=== PATIENT | male | born 1970 | race African-American/Black ===

== ENCOUNTER 2023-01-17 09:33 | Inpatient (IN) | payer OTHER ==
[2023-01-17 14:03] VITALS: BMI 28.0
[2023-01-17] MEDS ORDERED: POLYETHYLENE GLYCOL (HEALTHYLAX) 3350 17 GM PACKET PO PRN (14:55)
[2023-01-17] MEDS ORDERED: ACETAMINOPHEN 325 MG TABLET (FP) PO PRN (14:55)
[2023-01-17] MEDS ORDERED: DICYCLOMINE HCL 10 MG CAPSULE PO PRN (14:55)
[2023-01-17] MEDS ORDERED: guaiFENesin 600 MG TABLET.ER (FP) PO PRN (14:55)
[2023-01-17] MEDS ORDERED: MAGNESIUM HYDROX 2400MG/30ML ORAL SUSPENSION 30 ML CUP PO PRN (14:55)
[2023-01-17] MEDS ORDERED: IBUPROFEN 600 MG TABLET (FP) PO PRN (14:55)
[2023-01-17] MEDS ORDERED: NALOXONE HCL 0.4 MG/ML VIAL IM PRN (14:55)
[2023-01-17] MEDS ORDERED: METHOCARBAMOL 500 MG TABLET PO PRN (14:55)
[2023-01-17] MEDS ORDERED: BENZOCAINE/MENTHOL (CHLORASEPTIC ) LOZENGE MM PRN (14:55)
[2023-01-17] MEDS ORDERED: LOPERAMIDE HCL 2 MG CAPSULE PO PRN (14:55)
[2023-01-17] MEDS ORDERED: BISMUTH SUBSALICYLATE 524 MG/30 ML PO PRN (14:55)
[2023-01-17] MEDS ORDERED: NALOXONE HCL (KLOXXADO) 8 MG SPRAY NS PRN (14:55)
[2023-01-17] MEDS ORDERED: IBUPROFEN 400 MG TABLET (FP) PO PRN (14:55)
[2023-01-17] MEDS ORDERED: ONDANSETRON *ODT* 4 MG TABLET SL PRN (14:55)
[2023-01-17] MEDS ORDERED: BENZONATATE 200 MG CAPSULE PO PRN (14:55)
[2023-01-17] MEDS ORDERED: hydrOXYzine PAMOATE 25 MG CAPSULE (FP) PO PRN (14:55)
[2023-01-17] MEDS: metFORMIN HCL 500 MG TABLET (FP) PO SCH (16:05)
[2023-01-17] MEDS ORDERED: MELATONIN 5 MG TABLETS PO SCH (22:00)
[2023-01-17] MEDS: THIAMINE HCL 100 MG TABLET (FP) PO SCH (22:56)
[2023-01-17] MEDS: GABAPENTIN 300 MG CAPSULE PO SCH (22:56)
[2023-01-18] MEDS: GABAPENTIN 300 MG CAPSULE PO SCH ×3 (05:19→23:03)
[2023-01-18] MEDS: metFORMIN HCL 500 MG TABLET (FP) PO SCH ×2 (06:11→17:09)
[2023-01-18] MEDS ORDERED: chlordiazePOXIDE HCL 25 MG CAPSULE PO PRN (10:33)
[2023-01-18] MEDS: amLODIPine BESYLATE 10 MG TABLET (FP) PO SCH (10:35)
[2023-01-18] MEDS: HYDROCHLOROTHIAZIDE 25 MG TABLET (FP) PO SCH (10:36)
[2023-01-18] MEDS: PRENATAL VITAMINS W/ FOLIC ACID TABLET (FP) PO SCH (10:36)
[2023-01-18] MEDS: chlordiazePOXIDE HCL 25 MG CAPSULE PO SCH ×3 (10:49→23:04)
[2023-01-18 12:00] LABS: HEMATOCRIT 36.6 % (35.4-49); HEMOGLOBIN 11.3 GM/dL (11.7-16.9); MCH 21.5 pg (25.7-33.7); MCHC 30.9 g/dl (32.0-35.9); MEAN CELL VOLUME 69.7 fl (80-96); MEAN PLT VOLUME 9.2 fl (7.5-11.1); PLATELET COUNT 299 10^3/uL (134-434); RBC 5.25 M/mm3 (4.00-5.60); RDW 18.1 % (11.9-15.9); WHITE BLOOD COUNT 6.3 K/mm3 (4.0-10.0)
[2023-01-18 12:14] LABS: POTASSIUM 4.1 mmol/L (3.5-5.1)
[2023-01-18 12:24] LABS: BLOOD UREA NITROGEN 17.2 mg/dL (7-18); CALCIUM 9.7 mg/dL (8.5-10.1)
[2023-01-18 12:27] LABS: CREATININE 1.3 mg/dL (0.55-1.3)
[2023-01-18 12:29] LABS: BILIRUBIN,TOTAL 0.4 mg/dL (0.2-1); TOT PROT 5.8 g/dl (6.4-8.2)
[2023-01-18] MEDS: traZODone HCL 100 MG TABLET (FP) PO SCH (23:03)
[2023-01-18] MEDS: THIAMINE HCL 100 MG TABLET (FP) PO SCH (23:04)
[2023-01-18] MEDS: QUEtiapine FUMARATE 100 MG TABLET (FP) PO SCH (23:05)
[2023-01-19] MEDS: GABAPENTIN 300 MG CAPSULE PO SCH ×3 (05:54→21:53)
[2023-01-19] MEDS: chlordiazePOXIDE HCL 25 MG CAPSULE PO SCH ×4 (05:54→23:59)
[2023-01-19] MEDS: metFORMIN HCL 500 MG TABLET (FP) PO SCH ×2 (06:58→17:40)
[2023-01-19] MEDS: amLODIPine BESYLATE 10 MG TABLET (FP) PO SCH (10:30)
[2023-01-19] MEDS: HYDROCHLOROTHIAZIDE 25 MG TABLET (FP) PO SCH (10:30)
[2023-01-19] MEDS: PRENATAL VITAMINS W/ FOLIC ACID TABLET (FP) PO SCH (10:30)
[2023-01-19] MEDS: traZODone HCL 100 MG TABLET (FP) PO SCH (21:53)
[2023-01-19] MEDS: QUEtiapine FUMARATE 100 MG TABLET (FP) PO SCH (21:53)
[2023-01-19] MEDS: THIAMINE HCL 100 MG TABLET (FP) PO SCH (21:54)
[2023-01-20] MEDS: chlordiazePOXIDE HCL 25 MG CAPSULE PO SCH ×4 (05:50→22:10)
[2023-01-20] MEDS: GABAPENTIN 300 MG CAPSULE PO SCH ×3 (06:01→22:10)
[2023-01-20] MEDS: metFORMIN HCL 500 MG TABLET (FP) PO SCH ×2 (06:36→17:12)
[2023-01-20] MEDS: amLODIPine BESYLATE 10 MG TABLET (FP) PO SCH (10:25)
[2023-01-20] MEDS: PRENATAL VITAMINS W/ FOLIC ACID TABLET (FP) PO SCH (10:25)
[2023-01-20] MEDS: HYDROCHLOROTHIAZIDE 25 MG TABLET (FP) PO SCH (10:25)
[2023-01-20] MEDS: MAG HYDROX/AL HYDROX/SIMETH 30 ML UNIT-DOSE CUP PO PRN ×2 (17:15→23:49)
[2023-01-20] MEDS: PANTOPRAZOLE 40 MG TABLET PO SCH (17:42)
[2023-01-20] MEDS: QUEtiapine FUMARATE 100 MG TABLET (FP) PO SCH (22:10)
[2023-01-20] MEDS: THIAMINE HCL 100 MG TABLET (FP) PO SCH (22:10)
[2023-01-20] MEDS: traZODone HCL 100 MG TABLET (FP) PO SCH (22:10)
[2023-01-21] MEDS ORDERED: chlordiazePOXIDE HCL 10 MG CAPSULE PO PRN
[2023-01-21] MEDS: chlordiazePOXIDE HCL 10 MG CAPSULE PO SCH ×4 (06:04→22:43)
[2023-01-21] MEDS: GABAPENTIN 300 MG CAPSULE PO SCH ×3 (06:05→22:43)
[2023-01-21] MEDS: metFORMIN HCL 500 MG TABLET (FP) PO SCH ×2 (06:05→16:32)
[2023-01-21] MEDS: amLODIPine BESYLATE 10 MG TABLET (FP) PO SCH (10:33)
[2023-01-21] MEDS: HYDROCHLOROTHIAZIDE 25 MG TABLET (FP) PO SCH (10:33)
[2023-01-21] MEDS: PRENATAL VITAMINS W/ FOLIC ACID TABLET (FP) PO SCH (10:33)
[2023-01-21] MEDS: PANTOPRAZOLE 40 MG TABLET PO SCH (10:33)
[2023-01-21] MEDS: traZODone HCL 100 MG TABLET (FP) PO SCH (22:42)
[2023-01-21] MEDS: QUEtiapine FUMARATE 100 MG TABLET (FP) PO SCH (22:43)
[2023-01-21] MEDS: THIAMINE HCL 100 MG TABLET (FP) PO SCH (22:43)
[2023-01-22] MEDS: GABAPENTIN 300 MG CAPSULE PO SCH ×3 (05:34→22:07)
[2023-01-22] MEDS: chlordiazePOXIDE HCL 10 MG CAPSULE PO SCH ×2 (05:34→17:18)
[2023-01-22] MEDS: metFORMIN HCL 500 MG TABLET (FP) PO SCH ×2 (06:34→17:18)
[2023-01-22] MEDS: amLODIPine BESYLATE 10 MG TABLET (FP) PO SCH (10:20)
[2023-01-22] MEDS: PANTOPRAZOLE 40 MG TABLET PO SCH (10:20)
[2023-01-22] MEDS: PRENATAL VITAMINS W/ FOLIC ACID TABLET (FP) PO SCH (10:20)
[2023-01-22] MEDS: HYDROCHLOROTHIAZIDE 25 MG TABLET (FP) PO SCH (10:20)
[2023-01-22] MEDS: traZODone HCL 100 MG TABLET (FP) PO SCH (22:07)
[2023-01-22] MEDS: THIAMINE HCL 100 MG TABLET (FP) PO SCH (22:07)
[2023-01-22] MEDS: QUEtiapine FUMARATE 100 MG TABLET (FP) PO SCH (22:07)
[2023-01-23] MEDS ORDERED: chlordiazePOXIDE HCL 10 MG CAPSULE PO ONE (05:00)
[2023-01-23] MEDS: GABAPENTIN 300 MG CAPSULE PO SCH (05:29)
[2023-01-23] MEDS: metFORMIN HCL 500 MG TABLET (FP) PO SCH (06:27)
[2023-01-23 09:19] VITALS: BP 125/76; PULSE 90; RESP 20; TEMP 98.9
[2023-01-23] MEDS: HYDROCHLOROTHIAZIDE 25 MG TABLET (FP) PO SCH (10:01)
[2023-01-23] MEDS: amLODIPine BESYLATE 10 MG TABLET (FP) PO SCH (10:01)
[2023-01-23] MEDS: PRENATAL VITAMINS W/ FOLIC ACID TABLET (FP) PO SCH (10:01)
[2023-01-23] MEDS: PANTOPRAZOLE 40 MG TABLET PO SCH (10:02)
[2023-01-23] MEDS ORDERED: PNEUMOC 20-VAL CONJ-DIP CRM/PF 0.5 ML SYRINGE IM ONE (12:00)
== END 2023-01-23 12:25 | disposition other institution (70) | DRG 774 ==
LOC: YASAS 09:33 → Y3N 15:01
PROVIDERS: ADMIT Allergy & Immunology; ATTEND Surgery
PROC: HZ2ZZZZ Detoxification Services for Substance Abuse Treatment (ICD-10-PCS; principal; 2023-01-17)
DX: F10.230 Alcohol dependence with withdrawal, uncomplicated (principal); F14.20 Cocaine dependence, uncomplicated; F17.210 Nicotine dependence, cigarettes, uncomplicated; F19.282 Other psychoactive substance dependence with psychoactive substance-induced sleep disorder; F31.9 Bipolar disorder, unspecified; D17.1 Benign lipomatous neoplasm of skin and subcutaneous tissue of trunk; E78.5 Hyperlipidemia, unspecified; G47.00 Insomnia, unspecified; M79.2 Neuralgia and neuritis, unspecified; E11.9 Type 2 diabetes mellitus without complications; Z79.84 Long term (current) use of oral hypoglycemic drugs; Z86.19 Personal history of other infectious and parasitic diseases; Z88.0 Allergy status to penicillin
CPT/HCPCS: 36415; 80053; 82962; 85027; 86593; 86780; 87635; 87811; 90677; 93005; 93010

== ENCOUNTER 2023-12-22 14:58 | Inpatient (IN) | payer OTHER ==
[2023-12-22 16:40] VITALS: BMI 28.3
[2023-12-22] MEDS ORDERED: NALOXONE (NARCAN) HCL 4 MG/0.1 ML SPRAY NS PRN (17:13)
[2023-12-22] MEDS ORDERED: IBUPROFEN 600 MG TABLET (FP) PO PRN (17:13)
[2023-12-22] MEDS ORDERED: DICYCLOMINE HCL 10 MG CAPSULE PO PRN (17:13)
[2023-12-22] MEDS ORDERED: IBUPROFEN 400 MG TABLET (FP) PO PRN (17:13)
[2023-12-22] MEDS ORDERED: guaiFENesin 600 MG TABLET.ER (FP) PO PRN (17:13)
[2023-12-22] MEDS ORDERED: MAG HYDROX/AL HYDROX/SIMETH 30 ML UNIT-DOSE CUP PO PRN (17:13)
[2023-12-22] MEDS ORDERED: hydrOXYzine PAMOATE 25 MG CAPSULE (FP) PO PRN (17:13)
[2023-12-22] MEDS ORDERED: NICOTINE POLACRILEX 2 MG GUM BUC PRN (17:13)
[2023-12-22] MEDS ORDERED: BENZONATATE 200 MG CAPSULE PO PRN (17:13)
[2023-12-22] MEDS ORDERED: BENZOCAINE/MENTHOL (CHLORASEPTIC ) LOZENGE MM PRN (17:13)
[2023-12-22] MEDS ORDERED: MAGNESIUM HYDROX 2400MG/30ML ORAL SUSPENSION 30 ML CUP PO PRN (17:13)
[2023-12-22] MEDS ORDERED: ACETAMINOPHEN 325 MG TABLET (FP) PO PRN (17:13)
[2023-12-22] MEDS ORDERED: LOPERAMIDE HCL 2 MG CAPSULE PO PRN (17:13)
[2023-12-22] MEDS ORDERED: NALOXONE HCL 0.4 MG/ML VIAL IM PRN (17:13)
[2023-12-22] MEDS ORDERED: NICOTINE POLACRILEX 2 MG LOZENGE BC PRN (17:13)
[2023-12-22] MEDS ORDERED: BISMUTH SUBSALICYLATE 524 MG/30 ML PO PRN (17:13)
[2023-12-22] MEDS ORDERED: ONDANSETRON *ODT* 4 MG TABLET SL PRN (17:13)
[2023-12-22] MEDS ORDERED: POLYETHYLENE GLYCOL (HEALTHYLAX) 3350 17 GM PACKET PO PRN (17:13)
[2023-12-22] MEDS: THIAMINE 100 MG TABLET PO SCH (21:34)
[2023-12-22] MEDS: MELATONIN 5 MG TABLETS PO SCH (21:35)
[2023-12-22] MEDS: TOLNAFTATE 1% CREAM 15 GM TUBE TP SCH (21:35)
[2023-12-23] MEDS ORDERED: LABETALOL HCL 100 MG TABLET (FP) PO SCH (10:00)
[2023-12-23] MEDS: PANTOPRAZOLE 40 MG TABLET PO SCH (10:25)
[2023-12-23] MEDS: ASPIRIN 81 MG CHEWABLE TABLETS PO SCH (10:25)
[2023-12-23] MEDS: PRENATAL VITAMINS W/ FOLIC ACID TABLET (FP) PO SCH (10:25)
[2023-12-23] MEDS: GABAPENTIN 300 MG CAPSULE PO SCH (10:25)
[2023-12-23] MEDS: chlordiazePOXIDE HCL 25 MG CAPSULE PO SCH (10:26)
[2023-12-23] MEDS: LABETALOL HCL 100 MG PO SCH (11:18)
[2023-12-23 12:03] LABS: HEMATOCRIT 38.1 % (35.4-49); HEMOGLOBIN 11.8 GM/dL (11.7-16.9); MCH 22.3 pg (25.7-33.7); MEAN PLT VOLUME 8.4 fl (7.5-11.1); PLATELET COUNT 290 10^3/uL (134-434); RDW 17.8 % (11.9-15.9); WHITE BLOOD COUNT 5.2 K/mm3 (4.0-10.0)
[2023-12-23 12:06] LABS: CHLORIDE 105 mmol/L (98-107); POTASSIUM 4.3 mmol/L (3.5-5.1); SODIUM 139 mmol/L (136-145)
[2023-12-23 12:15] LABS: CALCIUM 9.2 mg/dL (8.5-10.1)
[2023-12-23 12:16] LABS: ALBUMIN 2.9 g/dl (3.4-5.0); ANION GAP 6 mmol/L (4-13); BLOOD UREA NITROGEN 14.7 mg/dL (7-18); CO2 28 mmol/L (21-32); GLUCOSE,RANDOM 224 mg/dL (74-106)
[2023-12-23 12:19] LABS: CREATININE 1.3 mg/dL (0.55-1.3); SGOT/AST 18 U/L (15-37); SGPT/ALT 28 U/L (13-61)
[2023-12-23 12:20] LABS: BILIRUBIN,TOTAL 0.7 mg/dL (0.2-1); TOT PROT 5.8 g/dl (6.4-8.2)
[2023-12-23 12:22] LABS: ALK PHOS 84 U/L (45-117)
[2023-12-23] MEDS: cloNIDine HCL 0.1 MG TABLET PO ONE (13:52)
[2023-12-23 14:19] LABS: HIV INTERPRETATION NEGATIVE (NEGATIVE)
[2023-12-23] MEDS ORDERED: metFORMIN HCL 500 MG TABLET (FP) PO SCH ×2 (16:30)
[2023-12-23] MEDS: metFORMIN HCL 500 MG TABLET (FP) PO SCH (17:22)
[2023-12-23] MEDS ORDERED: traZODone HCL 100 MG TABLET (FP) PO SCH (22:00)
[2023-12-23] MEDS: QUEtiapine FUMARATE 100 MG TABLET (FP) PO SCH (22:03)
[2023-12-23] MEDS: traZODone HCL 50 MG TABLET (FP) PO SCH (22:03)
[2023-12-23] MEDS: ATORVASTATIN CA 40 MG PO SCH (22:04)
[2023-12-23] MEDS: METHOCARBAMOL 500 MG TABLET PO PRN (22:04)
[2023-12-24] MEDS: amLODIPine BESYLATE 10 MG TABLET (FP) PO SCH (17:51)
[2023-12-24] MEDS: METOPROLOL TARTRATE 25 MG TABLET (FP) PO ONE (22:09)
[2023-12-25] MEDS: chlordiazePOXIDE HCL 25 MG CAPSULE PO SCH (05:30)
[2023-12-25] MEDS: chlordiazePOXIDE HCL 25 MG CAPSULE PO PRN (17:35)
[2023-12-25] MEDS: METOPROLOL TARTRATE 25 MG TABLET (FP) PO SCH (22:16)
[2023-12-26] MEDS ORDERED: chlordiazePOXIDE HCL 10 MG CAPSULE PO PRN
[2023-12-26] MEDS: chlordiazePOXIDE HCL 10 MG CAPSULE PO SCH (05:53)
[2023-12-26] MEDS: ALBUTEROL SO4 HFA INHALER IH PRN (10:30)
[2023-12-26] MEDS: HYDROCHLOROTHIAZIDE 25 MG TABLET (FP) PO SCH (13:26)
[2023-12-27] MEDS: chlordiazePOXIDE HCL 10 MG CAPSULE PO SCH (06:00)
[2023-12-27] MEDS: HYDROCHLOROTHIAZIDE 25 MG TABLET (FP) PO ONE (15:45)
[2023-12-27] MEDS: HYDROCHLOROTHIAZIDE 25 MG TABLET (FP) PO SCH (16:14)
[2023-12-28] MEDS: chlordiazePOXIDE HCL 10 MG CAPSULE PO ONE (05:55)
[2023-12-28 09:18] VITALS: BP 136/93; PULSE 95; RESP 18; TEMP 97.5
[2023-12-28] MEDS ORDERED: HYDROCHLOROTHIAZIDE 25 MG TABLET (FP) PO SCH (12:00)
== END 2023-12-28 12:06 | disposition other institution (70) | DRG 774 ==
LOC: YASAS 14:58 → Y3N 18:58
PROVIDERS: ADMIT Allergy & Immunology; ATTEND Surgery
PROC: HZ2ZZZZ Detoxification Services for Substance Abuse Treatment (ICD-10-PCS; principal; 2023-12-22)
DX: F10.230 Alcohol dependence with withdrawal, uncomplicated (principal); F14.20 Cocaine dependence, uncomplicated; F17.210 Nicotine dependence, cigarettes, uncomplicated; F31.9 Bipolar disorder, unspecified; G47.00 Insomnia, unspecified; I10 Essential (primary) hypertension; J45.909 Unspecified asthma, uncomplicated; E78.5 Hyperlipidemia, unspecified; E11.9 Type 2 diabetes mellitus without complications; Z79.84 Long term (current) use of oral hypoglycemic drugs; Z88.0 Allergy status to penicillin
CPT/HCPCS: 36415; 80053; 80305; 80307; 82962; 85027; 86593; 86780; 87389; 87811; 93005; 93010

== ENCOUNTER 2023-12-28 12:20 | Inpatient (IN) | payer OTHER ==
[2023-12-28] MEDS ORDERED: METHOCARBAMOL 500 MG TABLET PO PRN (15:25)
[2023-12-28] MEDS ORDERED: BACLOFEN 10 MG TABLET (FP) PO PRN (15:25)
[2023-12-28] MEDS ORDERED: NICOTINE POLACRILEX 4 MG LOZENGE BC PRN (15:25)
[2023-12-28] MEDS ORDERED: MAG HYDROX/AL HYDROX/SIMETH 30 ML UNIT-DOSE CUP PO PRN (15:25)
[2023-12-28] MEDS ORDERED: ACETAMINOPHEN 325 MG TABLET (FP) PO PRN (15:25)
[2023-12-28] MEDS ORDERED: guaiFENesin 600 MG TABLET.ER (FP) PO PRN (15:25)
[2023-12-28] MEDS ORDERED: MAGNESIUM HYDROX 2400MG/30ML ORAL SUSPENSION 30 ML CUP PO PRN (15:25)
[2023-12-28] MEDS ORDERED: NICOTINE POLACRILEX 4 MG GUM BUC PRN (15:25)
[2023-12-28] MEDS ORDERED: BENZONATATE 200 MG CAPSULE PO PRN (15:25)
[2023-12-28] MEDS ORDERED: IBUPROFEN 600 MG TABLET (FP) PO PRN (15:25)
[2023-12-28] MEDS ORDERED: POLYETHYLENE GLYCOL (HEALTHYLAX) 3350 17 GM PACKET PO PRN (15:25)
[2023-12-28] MEDS ORDERED: NALOXONE (NARCAN) HCL 4 MG/0.1 ML SPRAY NS PRN (15:25)
[2023-12-28] MEDS ORDERED: BENZOCAINE/MENTHOL (CHLORASEPTIC ) LOZENGE MM PRN (15:25)
[2023-12-28] MEDS ORDERED: NALOXONE HCL 0.4 MG/ML VIAL IVPUSH PRN (15:25)
[2023-12-28] MEDS ORDERED: LOPERAMIDE HCL 2 MG CAPSULE PO PRN (15:25)
[2023-12-28] MEDS ORDERED: IBUPROFEN 400 MG TABLET (FP) PO PRN (15:25)
[2023-12-28] MEDS: metFORMIN HCL 500 MG TABLET (FP) PO SCH (16:51)
[2023-12-28] MEDS: THIAMINE 100 MG TABLET PO SCH (21:05)
[2023-12-28] MEDS: ATORVASTATIN CA 40 MG TABLET (FP) PO SCH (21:05)
[2023-12-28] MEDS: MELATONIN 5 MG TABLETS PO SCH (21:05)
[2023-12-28] MEDS: GABAPENTIN 300 MG CAPSULE PO SCH (21:05)
[2023-12-28] MEDS: traZODone HCL 50 MG TABLET (FP) PO ONE (21:05)
[2023-12-28] MEDS: QUEtiapine FUMARATE 100 MG TABLET (FP) PO SCH (21:05)
[2023-12-29] MEDS: HYDROCHLOROTHIAZIDE 25 MG TABLET (FP) PO SCH (09:58)
[2023-12-29] MEDS: PRENATAL VITAMINS W/ FOLIC ACID TABLET (FP) PO SCH (09:58)
[2023-12-29] MEDS: PANTOPRAZOLE 40 MG TABLET PO SCH (09:58)
[2023-12-29] MEDS: amLODIPine BESYLATE 10 MG TABLET (FP) PO SCH (09:58)
[2023-12-29] MEDS: NICOTINE 21 MG/24 HOURS TOPICAL PATCH TD SCH (09:58)
[2023-12-30] MEDS: traZODone HCL 50 MG TABLET (FP) PO SCH (21:10)
[2023-12-31] MEDS: NALTREXONE HCL 50 MG TABLET PO SCH (11:38)
[2023-12-31] MEDS: hydrOXYzine PAMOATE 25 MG CAPSULE (FP) PO PRN (13:27)
[2023-12-31] MEDS: BACLOFEN 10 MG TABLET (FP) PO SCH (21:22)
[2024-01-01 11:51] LABS: INR 0.89 (0.83-1.09); PROTHROMBIN TIME (PATIENT) 10.3 SEC (9.7-13.0)
[2024-01-03] MEDS ORDERED: QUEtiapine FUMARATE 50 MG TABLET ONE (21:13)
[2024-01-03] MEDS: QUEtiapine FUMARATE 100 MG TABLET (FP) PO SCH (21:14)
[2024-01-04] MEDS ORDERED: METHOCARBAMOL 500 MG TABLET PO PRN ×2 (11:30→15:42)
[2024-01-04] MEDS: PETROLATUM, WHITE 30 GM TUBE TP SCH (12:29)
[2024-01-04] MEDS: CHOLECALCIFEROL (VIT D3) 400 UNIT (10 MCG) TABLET PO SCH (12:29)
[2024-01-04] MEDS: LACTULOSE 20 GM/30 ML UDC (FOR ORAL USE ONLY) PO SCH (13:20)
[2024-01-05] MEDS: NALTREXONE HCL 50 MG TABLET PO SCH (09:56)
[2024-01-06] MEDS: INSULIN ASPART SLIDING SCALE (NOVOLOG) 1 VIAL SQ SCH (16:28)
[2024-01-11] MEDS: metFORMIN HCL 500 MG TABLET (FP) PO SCH (16:26)
[2024-01-11] MEDS: NALTREXONE MICROSPHERES (VIVITROL) 380 MG DISP.SYRIN IM ONE (18:47)
[2024-01-12 06:54] VITALS: RESP 18
[2024-01-12 10:13] VITALS: BP 146/80; PULSE 107; TEMP 96.8
== END 2024-01-12 09:57 | disposition home or self-care (01) | DRG 772 ==
LOC: YASAS 12:20 → Y3W 12:28
PROVIDERS: ADMIT Allergy & Immunology; ATTEND Psychiatry & Neurology Pain Medicine
PROC: HZ42ZZZ Group Counseling for Substance Abuse Treatment, Cognitive-Behavioral (ICD-10-PCS; principal; 2023-12-28)
DX: F10.20 Alcohol dependence, uncomplicated (principal); F14.20 Cocaine dependence, uncomplicated; F17.210 Nicotine dependence, cigarettes, uncomplicated; F31.9 Bipolar disorder, unspecified; F19.282 Other psychoactive substance dependence with psychoactive substance-induced sleep disorder; E72.20 Disorder of urea cycle metabolism, unspecified; I10 Essential (primary) hypertension; I11.9 Hypertensive heart disease without heart failure; Z79.84 Long term (current) use of oral hypoglycemic drugs; L84 Corns and callosities; L85.3 Xerosis cutis; Z86.19 Personal history of other infectious and parasitic diseases; Z88.0 Allergy status to penicillin
CPT/HCPCS: 36415; 82140; 82306; 82962; 83036; 83735; 85610; 86803; 93005; 93010; J0475; J2315